=== PATIENT | female | born 1965 | race Caucasian/White ===

== ENCOUNTER 2022-05-02 07:00 | Outpatient (CLI) | payer OTHER, SELFPAY ==
--- NOTE | 2022-05-02 07:15 | MR_ITS ---
[address] [address] Phone:?[phone] Fax:?[phone] Referring Physician Information: Godwin Cruz M.D. [id number] [facility] [address] Phone:?[phone] Fax:?[phone] Patient:Pipo Falcon D.O.B:?1965 Sex:?Female Phone:?[phone] [facility] MRN:?[id number] Exam Date:?05/02/2022 ? EXAM: MRI of the RIGHT KNEE, without contrast CLINICAL: Right knee pain and locking. Evaluate for medial meniscal tear. COMPARISONS: None available. TECHNICAL: MR sequences of the right knee: sagittals: PD, PDFS coronals: PD, T2FS axials: PD, PDFS SEDATION: None. CONTRAST: None. FINDINGS: Ligaments: ACL: There is mucoid degeneration of the ACL, with small periligamentous ganglion formation seen about the proximal ACL. No evidence of disruption. PCL: Intact PCL, without acute or chronic injury. MCL: Intact MCL superficial and deep layers, without injury. LCL: Intact LCL, without injury. Posterolateral corner: Popliteus, biceps femoris, iliotibial band, and the popliteofibular ligament appear intact. Posteromedial corner: Semimembranosus, pes anserine tendons and posterior oblique ligament appear intact. Extensor mechanism: Patellar tendon: Intact, without tendinopathy. Quadriceps tendon: Intact, without tendinopathy. Retinacula: Medial and lateral retinacula are intact. Fat pads: Unremarkable infrapatellar Hoffa's, quadriceps and prefemoral fat pads. Patellofemoral joint: Patella: Full thickness chondral loss involves the lateral patellar facet extending into the patellar median ridge with trace underlying subchondral reactive change. Trochlea: There is moderate chondral thinning involving the lateral trochlea. Medial compartment: Medial meniscus: No evidence of discrete meniscal tear or meniscal displacement. Medial cartilage: Small 2 mm segment of high-grade chondral loss involving the lateral aspect of the weightbearing medial femoral condyle on coronal series 8 image 20. Remainder of the medial compartment cartilage appears preserved. Lateral compartment: Lateral meniscus: There is complex tearing involving the posterior horn extending into the posterior root fibers and also involving the body segment as seen on sagittal series 6 image 7-14 and coronal series 8 images 18-21. Ill- defined degenerative fraying/tearing involves the anterior root fibers. Small parameniscal cyst formation is noted along the periphery of the anterior horn and anterior root fibers as seen on sagittal series 6 images 11-13 and axial series 4 image 21-22, with joint fluid extending along the periphery of the remainder of the anterior horn and body segment. Lateral cartilage: High-grade/full-thickness chondral loss involves the lateral tibial plateau with a small segment of high-grade/full-thickness chondral loss involving the posterior weightbearing lateral femoral condyle adjacent to the posterior horn lateral meniscus. Knee joint: Effusion: Small right knee effusion. Intra-articular bodies:?No convincing bodies identified. Popliteal cyst: None. Bones: No suspicious bone marrow signal alteration or fracture line. IMPRESSION: 1. Tearing of the lateral meniscus as above. Medial meniscus is intact. 2. High-grade/full-thickness chondral loss involving the patellofemoral and lateral compartments as above. Small 2 mm segment of high-grade chondral loss involving the lateral aspect of the weightbearing medial femoral condyle. 3. Mucoid degeneration of the ACL with small periligamentous ganglion formation noted along the proximal ACL. Remaining ligamentous structures of the knee appear intact. 4. Small joint effusion. JCZ Electronically signed on 05/02/2022 12:01:00 PM by Cuate Stewart D.O.
== END 2022-05-02 07:01 | disposition home or self-care (01) ==
LOC: MRI 07:01
PROVIDERS: PCP Family Medicine; Visit Provider Orthopaedic Surgery Sports Medicine
DX: M25.561 Pain in right knee (principal); S83.241A Other tear of medial meniscus, current injury, right knee, initial encounter; M17.11 Unilateral primary osteoarthritis, right knee; M25.461 Effusion, right knee
CPT/HCPCS: 73721

== ENCOUNTER 2022-07-12 07:45 | Day surgery (SDC) | payer OTHER, SELFPAY ==
[2022-07-12] VITALS (13 sets, daily range): BP systolic 106–133; BP diastolic 61–81; PULSE 60–77; RESP 12–16; TEMP 36.2–36.5; O2SAT 95–100; BMI 29.0
[2022-07-12] MEDS: LACTATED RINGERS 1000 ML 1,000 ML 100 ML IV (08:10)
[2022-07-12] MEDS: SODIUM CHLORIDE 0.9 % (FLUSH) 10 ML SYRINGE IVF (08:10)
[2022-07-12] MEDS: CEFAZOLIN 2 GM in 0.9 % SODIUM CHLORIDE Mini-bag 100 ML IVPB (10:18)
--- NOTE | 2022-07-12 10:42 | W.ANESCHARGE ---
Anesthesia Charges Start Date/Time Anesthesia Start Date: 07/12/22 Anesthesia Start Time: 10:08 Stop Date/Time Anesthesia Stop Date: 07/12/22 Anesthesia Stop Time: 11:12 Summary Emergency: No
[2022-07-12] MEDS: ROPIVACAINE 0.5% 30 ML 150 MG INJECTION (11:00)
[2022-07-12] MEDS: OxyCODONE/APAP 5-325 TABLET 1 TAB PO (12:15)
--- NOTE | 2022-07-12 14:01 | PM.ORPRC ---
Procedure Note Date of procedure: 07/12/22 Procedure: PREOPERATIVE DIAGNOSIS: 1. Right knee lateral meniscus tear POSTOPERATIVE DIAGNOSIS: 1. Right knee lateral meniscus tear 2. 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 Right knee arthroscopic partial lateral menisectomy 2. Right knee arthroscopic chondroplasty all 3 compartments (medial femur, lateral femur, and patella) SURGEON: Godwin Cruz M.D. FOOD COUNTER ATTENDANT: SHAHANA Brunner. Of note, an care management assistant was critical for this case to aid in patient positioning, knee manipulation, instrument exchange, and closure. ANESTHESIA: General anesthetic EBL: 2ml TOURNIQUET: 30 min at 300 torr COMPLICATIONS: None evident INDICATIONS: The patient is a pleasant 57-year-old female who has experienced right knee pain particularly with any twisting or turning. Physical exam was concerning for meniscus tear, this was confirmed on MRI. Additionally, attempted nonoperative management has been tried, and failed. Thus, surgery was recommended. FINDINGS: Complex degenerative fraying and tearing lateral meniscus broadly from the posterior horn to the midbody needed approaching the anterior horn. There is a region of grade 4 chondromalacia lateral femoral condyle measuring 3 x 7 mm medial-lateral, proximal/distal, respectively. Surrounding this there is a grade 3 chondromalacia region with some loose chondral flaps. Medial femoral condyle showed a region of 6 x 8 mm grade 4 chondromalacia again M-L, P-D, respectively. There was grade 3 chondromalacia surrounding this region as well with loose chondral flap. Finally, grade 3-4 chondromalacia patellofemoral compartment. ACL was intact but had numerous striations within the fibers suggesting some degeneration. PCL was intact robust. Medial meniscus was intact and healthy. No loose bodies evident. DESCRIPTION OF PROCEDURE: After a thorough discussion of risks, benefits, and alternatives, the patient was brought to the operating room and placed upon the operating table. Induction of anesthesia was undertaken as previously noted. 2g IV Ancef was administered within 1 hr of incision preoperatively. Appropriate time-out was performed identifying proper patient, site, and procedure. The right lower extremity was prepped and draped in the appropriate sterile fashion using ChloraPrep. The limb was exsanguinated and tourniquet inflated. Anterolateral and anteromedial portals were established with an 11 blade, and a diagnostic arthroscopy was performed. This identified the findings as noted above. Following the diagnostic arthroscopy, a partial lateral menisectomy was performed with the combination of basket forceps and a motorized shaver. Following this, the meniscus was re-probed and found to be stable. Approximately 30-40 % of the overall meniscus required resection. In addition, the torpedo shaver was utilized for chondroplasty of the loose chondral flaps on the medial femoral condyle, lateral femoral condyle, and patella. At this stage, the shaver was reinserted into the suprapatellar pouch and all remaining meniscal debris was evacuated. Instruments were removed, excess fluid was drained, and closure performed with 4-0 Monocryl with Steri-Strips. Dressings were applied, the tourniquet deflated, and the patient was awoken from anesthesia and transferred to the PACU in stable condition. PLAN: 1. Weightbear as tolerated operative extremity. Crutch / walker ambulation assistance PRN. 2. Ice, acetominophen and/or ibuprofen, and Percocet for pain as needed. 3. Knee range of motion and quad sets/straight leg raise regularly 4. Follow up with PA visit in 1-2 weeks for a wound check and possibly to initiate physical therapy.
--- NOTE | 2022-07-12 14:16 | W.ANESCHARGE ---
Anesthesia Charges Start Date/Time Anesthesia Start Date: 07/12/22 Anesthesia Start Time: 10:08 Stop Date/Time Anesthesia Stop Date: 07/12/22 Anesthesia Stop Time: 11:12 Summary Emergency: No
== END 2022-07-12 13:10 | disposition home or self-care (01) ==
PROVIDERS: PCP Family Medicine; Visit Provider Orthopaedic Surgery Sports Medicine
PROC: (CPT 29870; principal; 2022-07-12 09:00)
DX: M23.251 Derangement of posterior horn of lateral meniscus due to old tear or injury, right knee (principal); M94.261 Chondromalacia, right knee
CPT/HCPCS: 29881; 1400; A9270; J0690; J1100; J2250; J2405; J2704; J2795; J3010; J3490; J7120

== ENCOUNTER 2025-02-27 08:25 | Outpatient (CLI) | payer BC, SELFPAY ==
--- OUTSIDE RECORDS SUMMARY | 2025-02-19 23:30 | XMS_ITS | Continuity of Care Document ---
Author Organization [facility] Address [address] [address] [place] [address] Phone Care Team Providers Care Program Attendant Name Role Phone No Information Unavailable Unavailable Allergies, Adverse Reactions, Alerts Substance Reaction Status Criticality No Known Allergies Active No Inform ation Medications Medication Instructions Dosage Effective Dates (start - stop) Status Comments Enzyme Digest capsule - Active Herbal Medications/Supple ments unknown Silver Fern GI Relief supplement - Active Herbal Medications/Supple ments unknown Silver Fern Motility supplement - Active GAS RELIEF (unknown strength) Not Available - Active VITAMIN B-12 (unknown strength) take 1 capsule by oral route every day Not Available - Active K2-D3 5000 (unknown strength) Vitamin d3/k2 liquid drops; take 3 drops by oral route every day Not Available - Active Tums E-X 300 mg (as calcium carbonate 750 mg) chewable tablet - Active Procedures Procedure Date Office Cons Moderate Offic/outpt E&m Estab Mod-hi 2 22 Breath Test Glucose Established Level 4 Colonoscopy Flex; W/bx 1/mx Ugi Endo; W/bx 1/mx Level Iv-surg Path Gross/micro 21 Established Level 4 Sep-30-2021 Offic/outpt E&m New Mod Sever 9 Routine Serum Collection Gg; Iga, Igd, Igg, Igm, Ea Thyroid Stim Hormone Advance Directives Directive Yes / No Effective Date File Name No Information Encounters Encounter Description Practice Location Reason(s) For Visit Diagnoses Date Provider Providers Copied on Encounter [facility], [address] [address], [place], [place], [id number], [place] tel:[phone] No Information No Information Office Cons Moderate [facility], [address] [address], [place], [place], [id number], [place] tel:[phone] [facility] GI Symptoms or Concerns (chief complaint) Abdominal bloatingGenerali zed abdominal pain Georgi Yoon. [address] [place] [address], [address], [id number], [place]. tel:[phone] Referring Provider: Anette Hdz MD, [address] [place] [address], [id number]. tel:[phone] [facility], [address] [address], [place], [place], [id number], [place] tel:[phone] [facility] No Information Reece Velazquez. [address] [place] [address], [address] [address], [place], [place], [id number], [place]. tel:[phone] Offic/outpt E&m Estab Mod-hi 2 [facility], [address] [address], [place], [place], [id number], [place] tel:[phone] [facility] GI Symptoms or Concerns (chief complaint) Previous History Review (chief complaint) Right upper quadrant painIrregular bowel habits 2 Tricia Gallo. [address] [place] [address], [address] [address], [place], [place], [id number], [place]. tel:[phone] Referring Provider: Sabino Canas, [address] [address], [place], [address] . tel:[phone] [facility], [address] [address], [place], [id number], [place] tel:[phone] [facility] No Information 1 Tricia Gallo. [address] [place] [address], [address], [id number], [place]. [phone] [facility], [address] [address], [place], [place], [id number], [place] tel:[phone] [facility] Epigastric pain 1 Tricia Gallo. [address] [place] [address], [id number], [place]. tel:[phone] Referring Provider: Anette Hdz MD, [address] [place] [address], [address]. tel:[phone] Established Level 4 [facility], [address] [address], [place], [id number], [place] tel:[phone] [facility] Previous History Review (chief complaint) Comment (chief complaint) Epigastric abdominal pain 1 Tricia Gallo. [address] [place] [address], [id number], [place]. tel:[phone] Referring Provider: Anette Hdz MD, [address] [place] [address], [address]. tel:[phone] [facility], [address] [address], [place], [id number], [place] tel:[phone] [facility] Nausea with vomiting, unspecifiedRUQ abdominal painPersonal history of colonic polypsChange in bowel movementOth symptoms and signs involving the dgstv sys and abdomenChange in bowel habitChange in bowel habitNausea with vomiting, unspecifiedRight upper quadrant painPersonal history of colonic polyps 1 Gavin Perez. [address] [place] [address], [id number], [place]. tel:[phone] Referring Provider: Anette Hdz MD, [address] [place] [address], [address]. tel:[phone] [facility], [address] [address], [place], [id number], [place] tel:[phone] [facility] No Information 1 Gavin Perez. [address] [place] [address], [id number], [place]. tel:[phone] Established Level 4 [facility], [address] [address], [place], [id number], [place] tel:[phone] [facility] GI Symptoms or Concerns (chief complaint) DyspepsiaHistory of adenomatous polyp of colonNon-intract able vomiting with nausea, unspecified vomiting type Sep-3 1 Tricia Gallo. [address] [place] [address], [id number], [place]. tel:[phone] Referring Provider: Anette Hdz MD, [address] [place] [address], [address]. tel:[phone] [facility], [address] [address], [place], [id number], [place] tel:[phone] [facility] No Information 1 Sarah Beth Simmons. [address] [place] [address], [place], [place], [id number], [place]. tel:[phone] Offic/outpt E&m [facility], [address] [address], [place], [id number], [place] tel:[phone] [facility] GI Symptoms or Concerns (chief complaint) Flatulence, eructation and gas painDietary counseling and surveillanceElev ated blood-pressure reading, w/o diagnosis of htn 9 Cesilia Weaver. [address] [place] [address], [place], [place], [id number], [place]. tel:[phone] Referring Provider: Anette Hdz MD, [address] [place] [address], [address]. tel:[phone] [facility], [address] [address], [place], [place], [id number], [place] tel:[phone] [facility] No Information Sarah Beth Simmons. [address] [facility], [facility] [address], [place], [place], [id number], [place]. tel:[phone] Family History Family Member Type Diagnosis Age At Onset Mother Problem (finding) gallbladder disease Mother Problem (finding) malignant neoplasm of p ancreas Mother Problem (finding) Pancreatitis Mother Problem (finding) Liver disease Father Problem (finding) Cancer, unknown Son Problem (finding) Alive and well Mother Problem (finding) Stomach Ulcer Sister Problem (finding) gallbladder disease Mother Problem (finding) GERD Daughter Problem (finding) Alive and well Immunizations Vaccine Date Status Comments Influenza, split virus, trivalent, injectable, preservative free administered Note: [facility] bi-direct ional interface ; Source: Other Registry SARS-COV-2 (COVID-19) vaccin e, mRNA, spike protein, LNP, preservative free, 50 mcg/0.5 mL dose administered Note: [facility] bi-direct ional interface ; Source: Other Registry Afluria Qd administered Note: [facility] bi-directional interface ; Source: Other Registry SARS-COV-2 (COVID-19) vaccin e, mRNA, spike protein, LNP, bivalent, preservative free, 30 mcg/0.3 mL dose, benedicto-sucrose formulation administered Note: [facility] bi-direct ional interface ; Source: Other Registry Afluria Qd administered Note: [facility] bi-directional interface ; Source: Other Registry tetanus toxoid, reduced diphtheria toxoid, and acellular pertussis vaccine, adsorbed administered Note: [facility] b i-directional interface ; Source: Other Registry SARS-COV-2 (COVID-19) vaccin e, mRNA, spike protein, LNP, preservative free, 100 mcg/0.5mL dose or 50 mcg/0.25mL dose administered Note: [facility] bi -directional interface ; Source: Other Registry SARS-COV-2 (COVID-19) vaccin e, mRNA, spike protein, LNP, preservative free, 100 mcg or 50 mcg dose administered Note: [facility] bi-direct ional interface ; Source: Other Registry Afluria Qd administered Note: [facility] bi-directional interface ; Source: Other Registry SARS-COV-2 (COVID-19) vaccin e, mRNA, spike protein, LNP, preservative free, 100 mcg/0.5mL dose or 50 mcg/0.25mL dose administered Note: [facility] bi -directional interface ; Source: Other Registry SARS-COV-2 (COVID-19) vaccin e, mRNA, spike protein, LNP, preservative free, 100 mcg or 50 mcg dose administered Note: [facility] bi-direct ional interface ; Source: Other Registry SARS-COV-2 (COVID-19) vaccin e, mRNA, spike protein, LNP, preservative free, 100 mcg/0.5mL dose administered Note: [facility] bi-direct ional interface ; Source: Other Registry SARS-COV-2 (COVID-19) vaccin e, mRNA, spike protein, LNP, preservative free, 100 mcg/0.5mL dose or 50 mcg/0.25mL dose administered Note: [facility] bi -directional interface ; Source: Other Registry SARS-COV-2 (COVID-19) vaccin e, mRNA, spike protein, LNP, preservative free, 100 mcg or 50 mcg dose administered Note: [facility] bi-direct ional interface ; Source: Other Registry SARS-COV-2 (COVID-19) vaccin e, mRNA, spike protein, LNP, preservative free, 100 mcg/0.5mL dose administered Note: [facility] bi-direct ional interface ; Source: Other Registry Influenza administered Note: [facility] bi-d irectional interface ; Source: Other Registry Influenza administered Note: [facility] bi-d irectional interface ; Source: Other Registry Afluria Qd administered Note: [facility] bi-directional interface ; Source: Other Registry Fluzone Quad 6mo or older administered Note: [facility] bi-direct ional interface ; Source: Other Registry Influenza administered Note: [facility] bi-d irectional interface ; Source: Other Registry tetanus toxoid, reduced diphtheria toxoid, and acellular pertussis vaccine, adsorbed administered Note: [facility] b i-directional interface ; Source: Other Registry Payers Payer name Insurance type Covered democrat ID Authoriza tion(s) No Information Social History Type Description Quantity Date Captured Comments Sex Female Smoking Status No Information Chief Complaint And Reason For Visit No Information Reason For Referral Reason For Referral No Information Plan Of Treatment Date Type Action Status Goal Lifestyle education regardin g diet completed Referral Ordered: Ultrasound Abdomen Appointment date/timeframe: 08/01/2021 ordered Referral Ordered: EGD Appointment date/timeframe: -today ordered Referral Ordered: Colonoscopy Appointment date/timeframe: -today ordered Referral Ordered: referred to [facility] Low FODMAPS ordered Referral Ordered: follow-up visit with Meg Lomas PAC 1 Month Appointment date/timeframe: 1 Month ordered Referral Ordered: Xray Abdomen; Limited (AP View Only) (KUB) Appointment date/timeframe: -today ordered History Of Present Illness Encounter Date Complaint History Of Prese nt Illness GI Symptoms or Concerns Amina deshpande is a pleasant 59-year-old female who presents for consultation at the request of Dr. Anette Hdz for evaluation of abdominal bloating and pain.Patient was last seen in our clinic in September 2021 for symptoms of abdominal bloating, SIBO and right upper quadrant abdominal pain. She was tested positive for SIBO around that time and subsequently underwent antibiotic treatment with improvement of symptoms. It was felt that her right upper quadrant abdominal pain was functional in nature. Since then, she did undergo a cholecystectomy.She presents to clinic today stating that since November/December, she has been having severe abdominal bloating and pain symptoms again. Since her last antibiotic treatment, she has been mostly managing with dietary changes and laxative supplements to help with symptoms. She does have history of chronic constipation and usually averages 1 bowel movement every 2 to 3 days. She states that she is currently taking a laxative supplement and is having a small bowel movement every day. She also has decreased appetite and early satiety with these bloating symptoms. She also experienced some pain in the right upper and flank areas of her abdomen. She denies any any fevers, chills, nausea, vomiting, diarrhea, unintentional weight loss or GI bleeding. Her last upper endoscopy and colonoscopy was done in June 2021 and she was found to have normal esophagus, erythematous mucosa in the stomach and duodenum, internal hemorrhoids but otherwise normal colon. Biopsies of the duodenal, gastric and colonic mucosa were all normal. She has no family history of IBD or colorectal cancer. She denies any chronic NSAIDs use. No tobacco, excessive alcohol or illicit drug use. Previous History Review This is a 56-year-old female with dyspepsia, nausea, vomiting, and gas. The patient states that she had a gallbladder taken out in September 2018 after finding out that her gallbladder apparently did not function well. She felt great for 6 months, but then symptoms started to recur. Now she is at the point where she does not feel good most days. When she wakes up in the morning, she is okay, she feels best if she does not eat. As the day goes on, she feels like she has a ton of gas. She passes a lot of flatus. She gets abdominal discomfort. This could be felt in the epigastric area. Labs from 04/14/2021 showed normal electrolytes, BUN, creatinine, liver tests, lipid panel, TSH, lipase, magnesium, and tTG.She has also had a history of shingles, SVT, and allergic rhinitis. 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 GI Symptoms or Concerns This is a 56-year-old female who has been having a right upper quadrant discomfort. Please refer to my note from 07/15/2021 for further details. Subsequently, she had a right upper quadrant ultrasound, which was unremarkable. Breath test was positive for methane-producing organism. She was treated with rifaximin and metronidazole. She did note improvement in that. After 3 days, her gas" was decreased to 50%. She noted decreased borborygmi, that had essentially gone away. She had less abdominal discomfort. She finished the antibiotics 09/17/2021. She has noted that she has had some symptoms that have been recurring, specifically right upper quadrant discomfort. She also had noted that her bowels might have been more consistent and now they are becoming a little more irregular, tendency towards constipation. She has never had a bowel obstruction, small bowel surgery. She had previous cholecystectomy. Previous History Review This is a 56-year-old female with dyspepsia, nausea, vomiting, and gas. The patient states that she had a gallbladder taken out in September 2018 after finding out that her gallbladder apparently did not function well. She felt great for 6 months, but then symptoms started to recur. Now she is at the point where she does not feel good most days. When she wakes up in the morning, she is okay, she feels best if she does not eat. As the day goes on, she feels like she has a ton of gas. She passes a lot of flatus. She gets abdominal discomfort. This could be felt in the epigastric area. Labs from 04/14/2021 showed normal electrolytes, BUN, creatinine, liver tests, lipid panel, TSH, lipase, magnesium, and tTG.She has also had a history of shingles, SVT, and allergic rhinitis. She tried Pepcid and PPI, which did not help her symptoms. Comment This is a 56-yea r-old female with abdominal pain in the epigastric area, dyspepsia, nausea, vomiting, and gas. She continues to have the same symptoms continuing. Intermittently, she gets a severe epigastric pain. This might occur an hour to an bzmh-jsk-u-half after eating, this makes it more likely. It might last for an hour to an imvg-pmr-m-half. When it is severe, she cannot even have any clothing pressing against this area, holding her granddaughter pressing there, makes it worse. Generally, she feels better if she has any eaten and may get a little worse after eating. She has some mild early satiety. She feels better if she lies flat. If the pain is more severe, she gets nauseated with it, no vomiting.She commonly notes borborygmi and other people hear this as well.For history of previous adenomatous polyps, she had colonoscopy done by Dr. Alonso on 07/07/2021. This showed internal hemorrhoids. Remainder exam was normal. Upper endoscopy done on same date for her GI Symptoms or Concerns This is a 56-year-old female referred for consultation by Anette Hdz MD for dyspepsia, nausea, vomiting, and gas. The patient states that she had a gallbladder taken out in September 2018 after finding out that her gallbladder apparently did not function well. She felt great for 6 months, but then symptoms started to recur. Now she is at the point where she does not feel good most days. When she wakes up in the morning, she is okay, she feels best if she does not eat. As the day goes on, she feels like she has a ton of gas. She passes a lot of flatus. She gets abdominal discomfort. This could be felt in the epigastric area. It can move to the right, near where she remembers having her gallbladder pain. It can radiate to her back at times as well. She has had 2 episodes of vomiting. She generally has bowel movements every other day, when her symptoms are more severe she tends to have 3 or 4 bowel movements on that day. She reports having colonoscopy 5 years ago and a tubula GI Symptoms or Concerns Amina deshpande is a 54-year-old female with medical history of colon polyps and cholecystectomy who presents for evaluation of abdominal gas and bloating upon referral from her primary care provider Dr. Anette Hdz. The patient has troubled for a number of years with abdominal pressure and bloating which eventually leads to excessive flatulence and burping. Her symptoms can come on at any point during the day. It does not always correlate to meals. She does have some nausea associated, but it is not vomiting. As part of her previous evaluation, a HIDA scan was found to be positive and her gallbladder was removed in September 2018. She experienced some relief for about 2 months until her gas and bloating returned. She goes on to say that she is having regular bowel movements. She will have 1 to 2 bowel movements per day. She does note that this is different than her baseline, which is typically a bowel movement every other day. There is no black or bloody stool. Functional Status Date Functional Assessmen t No Information Instructions Date Instruction Additional Infor dawson It was a pleasure me eting you today, as we discussed in clinic:We will obtain a CT scan of the abdomen and pelvis to rule out anything significant causing your abdominal pain and bloating. One of my team members will contact you to schedule this.In the meantime, you can try yfla-czs-uejpcuz peppermint oil capsules as needed such as IBgard or Ellen's tummy tamers to see if this helps with symptoms.Depending on findings of the CT, we may have you do a bowel cleanse first to help with symptoms. If symptoms continue to persist, then we will consider another course of antibiotic therapy for empiric treatment given your history of SIBO.Follow-up in clinic in 4 to 5 weeks. Related to Abdominal bloating If symptoms persisti ng, consider gastric emptying study, possibly tricyclic medication.? EUS. Related to Epigastric abdominal pain Colon Cancer Prevention Related to Personal history of colonic polyps Given her symptoms o ccurring after eating, vomiting, etc., I think we should proceed with upper endoscopy. She is essentially due for colonoscopy, we can do those at the same time. With these, we should get biopsies. I will set up a followup appointment. We may consider checking CRP, potentially CT scan, trying cholestyramine, considering tricyclic medication, etc,, depending on the results. Related to Dyspepsia We will proceed with a glucose breath testing. The patient will schedule an abdominal x-ray to assess her stool burden. Blood work today to assess for celiac disease and check TSH. The patient will avoid all dairy products for 2 weeks. She will try using Gas-X. She will meet with [facility] dietitian to go over low FODMAPs foods. She will follow up in clinic in approximately 1 to 2 months for further evaluation. Related to Flatulence, eructation and gas pain Lifestyle education regarding di et Related to Dietary counseling and surveillance Assessments Type Assessment Date No Information Patient Care Teams Name Effective Dates (start - stop) Status Members No Information
--- OUTSIDE RECORDS SUMMARY | 2025-02-19 23:30 | XMS_ITS | Continuity of Care Document ---
Author Organization [facility] Address [address] [address] [place] [address] Phone Care Team Providers Care Storeroom Clerk Name Role Phone No Information Unavailable Unavailable [...] Diagnoses Date Provider Providers Copied on Encounter [facility], [address] [address], [place], [place], [id number], [place] tel:[phone] No Information No Information Office Cons Moderate [facility], [address] [address], [place], [place], [id number], [place] tel:[phone] [facility] GI Symptoms or Concerns (chief complaint) Abdominal bloatingGenerali zed abdominal pain Georgi Yoon. [address] [place] [address], [address], [id number], [place]. tel:[phone] Referring Provider: Anette Hdz MD, [address] [place] [address], [address]. tel:[phone] [facility], [address] [address], [place], [place], [id number], [place] tel:[phone] [facility] No Information Reece Velazquez. [address] [place] [address], [address] [address], [place], [place], [id number], [place]. tel:[phone] Offic/outpt E&m Estab Mod-hi 2 [facility], [address] [address], [place], [id number], [place] tel:[phone] [facility] GI Symptoms or Concerns (chief complaint) Previous History Review (chief complaint) Right upper quadrant painIrregular bowel habits 2 Tricia Gallo. [address] [place] [address], [address] [address], [place], [place], [id number], [place]. tel:[phone] Referring Provider: Sabino Canas, [address] [address], [place], [address] . tel:[phone] [facility], [address] [address], [place], [place], [id number], [place] tel:[phone] [facility] No Information 1 Tricia Gallo. [address] [place] [address], [address], [id number], [place]. [phone] [facility], [address] [address], [place], [id number], [place] tel:[phone] [facility] Epigastric pain 1 Tricia Gallo. [address] [place] [address], [id number], [place]. tel:[phone] Referring Provider: Anette Hdz MD, [address] [place] [address], [address]. tel:[phone] Established Level 4 [facility], [address] [address], [place], [id number], [place] tel:[phone] [facility] Previous History Review (chief complaint) Comment (chief complaint) Epigastric abdominal pain 1 Tricia Gallo. [address] [place] [address], [id number], [place]. tel:[phone] Referring Provider: Anette Hdz MD, [address] [place] [address], [address]. tel:[phone] [facility], [address] [address], [place], [id number], [place] tel:[phone] [facility] [place] [facility] Nausea with vomiting, unspecifiedRUQ abdominal painPersonal history of colonic polypsChange in bowel movementOth symptoms and signs involving the dgstv sys and abdomenChange in bowel habitChange in bowel habitNausea with vomiting, unspecifiedRight upper quadrant painPersonal history of colonic polyps 1 Gavin Perez. [address] [place] [address], [id number], [place]. tel:[phone] Referring Provider: Anette Hdz MD, [address] [place] [address], [address]. tel:[phone] [facility], [address] [address], [place], [id number], [place] tel:[phone] [facility] No Information 1 Gavin Perez. [address] [place] [address], [id number], [place]. tel:[phone] Established Level 4 [facility], [address] [address], [place], [id number], [place] tel:[phone] [facility] GI Symptoms or Concerns (chief complaint) DyspepsiaHistory of adenomatous polyp of colonNon-intract able vomiting with nausea, unspecified vomiting type Sep-3 1 Tricia Gallo. [address] [place] [address], [id number], [place]. tel:[phone] Referring Provider: Anette Hdz MD, [address] [place] [address], [address]. tel:[phone] [facility], [address] [address], [place], [id number], [place] tel:[phone] [facility] No Information 1 Sarah Beth Simmons. [address] [place] [address], [place], [place], [id number], [place]. tel:[phone] Offic/outpt E&m [facility] Sever [facility], [address] [address], [place], [id number], [place] tel:[phone] [facility] GI Symptoms or Concerns (chief complaint) Flatulence, eructation and gas painDietary counseling and surveillanceElev ated blood-pressure reading, w/o diagnosis of htn 9 Cesilia Weaver. [address] [place] [address], [place], [place], [id number], [place]. tel:[phone] Referring Provider: Anette Hdz MD, [address] [place] [address], [address]. tel:[phone] [facility], [address] [address], [place], [place], [id number], [place] tel:[phone] [facility] No Information Sarah Beth Simmons. [address] [facility], [facility] [address], [place], [place], [id number], [place]. tel:[phone] Family History Family Member Type Diagnosis Age [...] Registry Payers Payer name Insurance type Covered green party ID Authoriza tion(s) No Information Social History [...] date/timeframe: -today ordered Referral Ordered: referred to [facility] [employer] [facility] Low FODMAPS ordered Referral Ordered: follow-up visit [...] This might occur an hour to an aboi-fro-i-half after eating, this makes it more likely. It might last for an hour to an bvgr-sfa-q-half. When it is severe, she cannot even [...] schedule this.In the meantime, you can try okfg-kbs-hxhjrjh peppermint oil capsules as needed such as [...] try using Gas-X. She will meet with [facility] dietitian to go over low FODMAPs [...]
--- NOTE | 2025-02-27 09:00 | CRLHL7_ITS ---
For Patients: As a result of the Century Cures Act, medical imaging exams and procedure reports are released immediately into your electronic medical record. You may view this report before your referring provider. If you have questions, please contact your health care provider. Indication: Abdominal bloating; generalized abdominal pain Technique: CT Abdomen/Pelvis W/ ISOVUE 370 intravenous contrast Please note that all CT scans at this facility use dose degenerative disc disease L4-5 and L5-S1. Chronic ossicle adjacent to the L4-5 disc space. Modulation, iterative reconstruction, and/or weight-based dosing when appropriate to reduce radiation dose to as low as reasonably achievable. Comparison: None Findings: Mild atelectasis or scarring in both lung bases noted. Normal liver. Gallbladder absent. No biliary obstruction. Normal pancreas. The spleen is within normal limits. Adrenal glands are normal. Sub cm cyst within the mild atherosclerotic changes. Bladder, uterus and ovaries are unremarkable. Normal appendix. No bowel obstruction, free air, free fluid or abscess. No abdominal wall hernia. No enlarged lymph nodes. Left kidney. Normal right kidney. A few scattered sub cm retroperitoneal lymph nodes are noted. Impression: Unremarkable. No bowel obstruction or ascites. No suspicious findings. Please note that all CT scans at this facility use dose modulation, iterative reconstruction, and/or weight-based dosing when appropriate to reduce radiation dose to as low as reasonably achievable. Dictated by Chaparro Friend MD @ 02/27/2025 10:58:39 AM (Electronically Signed)
== END 2025-02-27 08:26 | disposition home or self-care (01) ==
PROVIDERS: PCP Family Medicine; Visit Provider Internal Medicine
DX: R14.0 Abdominal distension (gaseous) (principal); R10.84 Generalized abdominal pain
CPT/HCPCS: 74177; Q9967